=== PATIENT | female | born 1960 | race Caucasian/White ===

== ENCOUNTER 2016-07-16 16:13 | Emergency (ER) | payer SELFPAY ==
[~2016-07-16] VITALS: Ht 160 cm; Wt 52.2 kg
[2016-07-16 16:20] VITALS: BP 146/65
--- NOTE | 2016-07-16 16:34 | PHYS DOC ---
Past Medical History Past Medical History: Arthritis, Other Additional Past Medical Histor: CARPAL TUNNEL, GRANULOMA ANNULARE (SKIN DISORDER) Past Surgical History: Tonsillectomy, Tubal ligation Additional Past Surgical Histo: BILATERAL CARPAL TUNNEL SX Alcohol Use: None Drug Use: None Adult General Chief Complaint Chief Complaint: [facility] HPI Patient is a 55 year old 55-year-old female patient with no significant medical history who presents with sharp 6 out of 7 right shoulder pain that began 3-7 days ago. Patient denies any injury. Patient states the pain is worse when she tries to raise her right upper extremity above her head. Patient denies any chest pain or shortness of breath. PCP Dr. Isadora Prather Review of Systems Review of Systems Constitutional: Denies fever or chills [] Eyes: Denies change in visual acuity, redness, or eye pain [] HENT: Denies nasal congestion or sore throat [] Respiratory: Denies cough or shortness of breath [] Cardiovascular: No additional information not addressed in HPI [] GI: Denies abdominal pain, nausea, vomiting, bloody stools or diarrhea [] : Denies dysuria or hematuria [] Musculoskeletal: Right shoulder pain Integument: Denies rash or skin lesions [] Neurologic: Denies headache, focal weakness or sensory changes [] Endocrine: Denies polyuria or polydipsia [] Allergies Allergies Allergies Coded Allergies Type Severity Reaction Last Updated Verified No Known Drug Allergies 07/16/16 No Physical Exam Physical Exam Constitutional: Well developed, well nourished, no acute distress, non-toxic appearance. [] HENT: Normocephalic, atraumatic, bilateral external ears normal, oropharynx moist, no oral exudates, nose normal. [] Eyes: PERRLA, EOMI, conjunctiva normal, no discharge. [] Neck: Normal range of motion, no tenderness, supple, no stridor. [] Cardiovascular:Heart rate regular rhythm, no murmur [] Lungs & Thorax: Bilateral breath sounds clear to auscultation [] Abdomen: Bowel sounds normal, soft, no tenderness, no masses, no pulsatile masses. [] Skin: Warm, dry, no erythema, no rash. [] Back: No tenderness, no CVA tenderness. [] Extremities: Right shoulder with no obvious deformity. Tenderness on the right scapula on exam. Limited range of motion to the right shoulder especially abduction above 75 degrees due to pain. Adequate plantar flexion and dorsiflexion on the right forearm. Adequate radial, ulnar and medial sensation to the right forearm. +2 right radial pulses. Cap refill <2 seconds to the right upper extremity. Neurologic: Alert and oriented X 3, normal motor function, normal sensory function, no focal deficits noted. [] Psychologic: Affect normal, judgement normal, mood normal. [] Current Patient Data Vital Signs Vital Signs Date Time Temp Pulse Resp B/P (MAP) Pulse Ox O2 Delivery O2 Flow Rate FiO2 07/16/16 16:20 98.2 55 18 100 Room Air 98.2 EKG EKG [] Radiology/Procedures Radiology/Procedures [] Course & Med Decision Making Course & Med Decision Making Pertinent Labs and Imaging studies reviewed. (See chart for details) Patient is in the ED with complaints of right shoulder pain no known injury. Pain worse on range of motion. Right shoulder x-rays interpreted by radiologist are negative for any acute findings.17:04 EKG was done to rule out possibility of cardiac origin, EKG interpreted by Dr. May sinus rhythm, heart rate 51, QRS interval 76, no STEMI. Pain suspicious of tendinitis. Discharged with diclofenac, Medrol Dosepak, cyclobenzaprine. F/u with Orthopedic doctor Xavier Disclaimer Xavier Disclaimer This electronic medical record was generated, in whole or in part, using a voice recognition dictation system. Departure Departure Impression: Primary Impression: Right shoulder tendinitis Disposition: 01 HOME, SELF-CARE Condition: STABLE Referrals: ISADORA GRAHAM MD (PCP) FLORENCIO ROLLINS II, MD Follow-up in one week Patient Instructions: Biceps Tendon Tendinitis (Distal) with [facility] Additional Instructions: You were seen for right shoulder pain suspicious of tendinitis. Your right shoulder x-ray is negative for any acute findings. We highly recommend you follow-up with orthopedic doctor or your own primary care doctor in one week. Come back to the ED symptoms worsen especially if you have any chest pain or shortness of breath. Scripts Cyclobenzaprine Hcl (CYCLOBENZAPRINE HCL) 10 Mg Tablet 1 TAB PO TID, #30 TAB Prov: ADIACHACE APRN 07/16/16 Diclofenac Potassium (DICLOFENAC POTASSIUM) 50 Mg Tablet 1 TAB PO BID, #60 TAB Prov: CHACE RUSHING APRN 07/16/16 Methylprednisolone (MEDROL) 4 Mg Tab.ds.pk 1 PKG PO UD, #1 PKG Prov: CHACE RUSHING APRN 07/16/16 CHACE RUSHING APRN July 16, 2016 16:34
--- NOTE | 2016-07-16 16:52 | RAD ---
Right shoulder, 3 views, 07/16/2016: History: Shoulder pain No fracture or dislocation is identified. There is only minimal sclerotic and cystic change at rotator cuff insertion sites on the greater tuberosity. The periarticular soft tissues are unremarkable. IMPRESSION: No acute right shoulder abnormality is detected.
--- NOTE | 2016-07-16 17:09 | EKG ---
[facility] [address] [place] [address] Test Date: 2016-07-16 Test Time: 17:04:22 Pat Name: EDDIE LOPEZ Department: Room: Gender: F Dump Truck Operator: : 1960 Requested By: CHACE RUSHING Order Number: [id number] Reading MD: Measurements Intervals [place] Rate: 51 P: 41 WV: 158 QRS: 36 QRSD: 76 T: 26 QT: 466 QTc: 431 Interpretive Statements SINUS RHYTHM RI6.01 Unconfirmed report No previous ECG available for comparison
[2016-07-16] MEDS ORDERED: CYCL10TA2 PO (17:40)
[2016-07-16] MEDS ORDERED: METH4TAB2 PO (17:40)
[2016-07-16] MEDS ORDERED: DICL50TA2 PO (17:40)
== END 2016-07-16 17:44 | disposition home or self-care (01) ==
LOC: ER 17:40
DX: M75.91 Shoulder lesion, unspecified, right shoulder (principal); G56.03 Carpal tunnel syndrome, bilateral upper limbs; M19.90 Unspecified osteoarthritis, unspecified site
CPT/HCPCS: 73030; 93005; 99284-25

== ENCOUNTER 2016-07-29 12:30 | Emergency (ER) | payer SELFPAY ==
[~2016-07-29] VITALS: Ht 160 cm; Wt 52.6 kg
[~2016-07-29 12:30] MED LIST: CYCL10TA2 PO; DICL50TA2 PO; METH4TAB2 PO
[2016-07-29 12:41] VITALS: BP 129/61
--- NOTE | 2016-07-29 12:49 | PHYS DOC ---
Past Medical History Past Medical History: Arthritis, Other Additional Past Medical Histor: CARPAL TUNNEL, GRANULOMA ANNULARE (SKIN DISORDER) Past Surgical History: Tonsillectomy, Tubal ligation Additional Past Surgical Histo: BILATERAL CARPAL TUNNEL SX Alcohol Use: None Drug Use: None Adult General Chief Complaint Chief Complaint: HAND PROBLEM HPI HPI Patient is a 55 year old female who presents today with mild pain between her right ring finger and pinky finger webspace that began 2 weeks ago. Patient denies any known injury. She states the pain is worse on flexion and extension of the pinky finger and ring finger. Review of Systems Review of Systems Constitutional: Denies fever or chills [] Eyes: Denies change in visual acuity, redness, or eye pain [] Musculoskeletal:pain to right ring finger and pinky finger webspace Integument: Denies rash or skin lesions [] Neurologic: Denies headache, focal weakness or sensory changes [] Endocrine: Denies polyuria or polydipsia [] Allergies Allergies Allergies Coded Allergies Type Severity Reaction Last Updated Verified No Known Drug Allergies 07/16/16 No Physical Exam Physical Exam Constitutional: Well developed, well nourished, no acute distress, non-toxic appearance. [] Skin: Warm, dry, no erythema, no rash. [] Back: No tenderness, no CVA tenderness. [] Extremities: Right hand with no obvious deformity. No ecchymosis on the right hand. Tenderness on palpation of the webspace between the right ring finger and pinky finger. Full range of motion to the right hand and fingers including flexion and extension. Adequate radial medial and ulnar sensation to the right hand. +2 right radial pulse. Cap refill and symptoms of concern right upper extremity. Neurologic: Alert and oriented X 3, normal motor function, normal sensory function, no focal deficits noted. [] Psychologic: Affect normal, judgement normal, mood normal. [] Current Patient Data Vital Signs Vital Signs Date Time Temp Pulse Resp B/P (MAP) Pulse Ox O2 Delivery O2 Flow Rate FiO2 07/29/16 12:41 97.9 51 17 100 Room Air 97.9 EKG EKG [] Radiology/Procedures Radiology/Procedures []PROCEDURE: HAND RIGHT 3V Right hand radiographs History: Pain between the fourth and fifth finger web space. Comparison: None. Findings: PA, lateral, and oblique views of the right hand. No acute fracture or dislocation is identified. No radiopaque foreign body or focal soft tissue swelling is seen. Impression: No acute osseous abnormality identified. DICTATED and SIGNED BY: MANJIT PENA MD DATE: 07/29/16 1305 CC: ISADORA GRAHAM MD; CHACE RUSHING APRN; NON,STAFF ~ Course & Med Decision Making Course & Med Decision Making Pertinent Labs and Imaging studies reviewed. (See chart for details) Patient is in the ED with complaints of pain between the webspace of the right ring finger and pinky finger. No known injury. Right hand x-rays interpreted by radiologist are negative for any acute findings. Patient's pain is very superficial. Discharged with instructions to take Tylenol Motrin for pain. Ice elevation encouraged. Follow-up with Dr. Recio through Latha's office in one week Dragon Disclaimer Dragon Disclaimer This electronic medical record was generated, in whole or in part, using a voice recognition dictation system. Departure Departure Impression: Primary Impression: Right hand pain Disposition: 01 HOME, SELF-CARE Condition: STABLE Referrals: ISADORA GRAHAM MD (PCP) BERNABE AZUL MD Follow up with Dr. Recio at Dr. Azul's office in one to two weeks Patient Instructions: Musculoskeletal Pain Additional Instructions: You were seen for right hand pain, your x-ray of the right hand is negative for any acute findings. You can ice and elevate the hand. Follow-up with orthopedic doctor in one to 2 weeks. Take Tylenol/ Motrin for pain. CHACE RUSHING APRN Jul 29, 2016 12:49
--- NOTE | 2016-07-29 13:14 | RAD ---
Right hand radiographs History: Pain between the fourth and fifth finger web space. Comparison: None. Findings: PA, lateral, and oblique views of the right hand. No acute fracture or dislocation is identified. No radiopaque foreign body or focal soft tissue swelling is seen. Impression: No acute osseous abnormality identified.
== END 2016-07-29 13:30 | disposition home or self-care (01) ==
LOC: ER 12:30
DX: M79.641 Pain in right hand (principal); M79.644 Pain in right finger(s); G56.03 Carpal tunnel syndrome, bilateral upper limbs; M19.90 Unspecified osteoarthritis, unspecified site
CPT/HCPCS: 73130; 99284

== ENCOUNTER → 2017-02-01 | Outpatient (CLI) | payer OTHER ==
--- NOTE | 2017-02-01 11:03 | RAD ---
DATE: 02/01/2017 EXAM: DIGITAL SCREEN BILAT W/CAD HISTORY: Routine screening. COMPARISON: 01/03/2015 and 02/27/2014. This study was interpreted with the benefit of Computerized Aided Detection (CAD). FINDINGS: The parenchymal pattern is stable. A nodular density in the outer right breast appears stable. No new mass or malignant appearing microcalcifications are seen. There are benign calcifications bilaterally. The axillae are unremarkable. Breast Density: SCATTERED The breast parenchyma shows scattered fibroglandular densities. Breast parenchyma level B. IMPRESSION: No mammographic features suspicious for malignancy are identified. BI-RADS CATEGORY: 2 BENIGN FINDING(S) RECOMMENDED FOLLOW-UP: 12M 12 MONTH FOLLOW-UP PQRS compliance statement: Patient information was entered into a reminder system with a target due date 02/01/2018 for the next mammogram. Mammography is a sensitive method for finding small breast cancers, but it does not detect them all and is not a substitute for careful clinical examination. A negative mammogram does not negate a clinically suspicious finding and should not result in delay in biopsying a clinically suspicious abnormality. "Our facility is accredited by the [employer] Mammography Program."
== END | disposition home or self-care (01) ==
LOC: MAMMO 10:20
PROVIDERS: ATTEND Family Medicine
DX: Z12.31 Encounter for screening mammogram for malignant neoplasm of breast (principal)
CPT/HCPCS: G0202; 77067

== ENCOUNTER 2018-08-17 21:27 | Emergency (ER) | payer SELFPAY ==
[~2018-08-17] VITALS: Ht 160 cm; Wt 53.1 kg
[2018-08-17 21:53] VITALS: BP 143/111
[2018-08-17] MEDS ORDERED: ONDA4TAB12 PO (22:50)
--- NOTE | 2018-08-17 22:50 | PHYS DOC ---
Past Medical History Past Medical History: Arthritis, Other Additional Past Medical Histor: CARPAL TUNNEL, GRANULOMA ANNULARE (SKIN DISORDER) Past Surgical History: Tonsillectomy, Tubal ligation Additional Past Surgical Histo: BILATERAL CARPAL TUNNEL SX Alcohol Use: None Drug Use: None Adult General Chief Complaint Chief Complaint: DRUG ABUSE HPI HPI Patient is a 57 year old female who presents after running out of methadone. The patient states she hasn't had it in several days and is been feeling nauseous. Has a prescription ready for at the pharmacy in the morning. Rates her pain as 8 out of 10 and sharp. Review of Systems Review of Systems Constitutional: Denies fever or chills [] Eyes: Denies change in visual acuity, redness, or eye pain [] HENT: Denies nasal congestion or sore throat [] Respiratory: Denies cough or shortness of breath [] Cardiovascular: No additional information not addressed in HPI [] GI: Denies abdominal pain, bloody stools or diarrhea Reports Nausea and vomiting. : Denies dysuria or hematuria [] Musculoskeletal: Denies back pain or joint pain [] Integument: Denies rash or skin lesions [] Neurologic: Denies headache, focal weakness or sensory changes [] Endocrine: Denies polyuria or polydipsia [] Complete systems were reviewed and found to be within normal limits, except as documented in this note. Allergies Allergies Allergies Coded Allergies Type Severity Reaction Last Updated Verified No Known Drug Allergies 07/16/16 No Physical Exam Physical Exam Constitutional: Well developed, well nourished, no acute distress, non-toxic appearance. [] HENT: Normocephalic, atraumatic, bilateral external ears normal, oropharynx moist, no oral exudates, nose normal. [] Eyes: PERRLA, EOMI, conjunctiva normal, no discharge. [] Neck: Normal range of motion, no tenderness, supple, no stridor. [] Cardiovascular:Heart rate regular rhythm, no murmur [] Lungs & Thorax: Bilateral breath sounds clear to auscultation [] Abdomen: Bowel sounds normal, soft, no tenderness, no masses, no pulsatile masses. [] Skin: Warm, dry, no erythema, no rash. [] Back: No tenderness, no CVA tenderness. [] Extremities: No tenderness, no cyanosis, no clubbing, ROM intact, no edema. [] Neurologic: Alert and oriented X 3, normal motor function, normal sensory function, no focal deficits noted. [] Psychologic: Affect normal, judgement normal, mood normal. [] EKG EKG [] Radiology/Procedures Radiology/Procedures [] Course & Med Decision Making Course & Med Decision Making Pertinent Labs and Imaging studies reviewed. (See chart for details) Will give Zofran in ER and send home with Script. Dragon Disclaimer Dragon Disclaimer This electronic medical record was generated, in whole or in part, using a voice recognition dictation system. Departure Departure Impression: Primary Impression: Chronic pain Disposition: HOME, SELF-CARE Condition: STABLE Referrals: ISADORA GRAHAM MD (PCP) Additional Instructions: Thank you for visiting [facility]. We appreciate you trusting us with your care. If any additional problems come up don't hesitate to return to visit us. Please follow up with your primary care provider so they can plan additional care if needed and know about the problem that you had. If symptoms worsen come back to the Emergency Department. Any concerning symptoms that start such as chest pain, shortness of Air, weakness or numbness on one side of the body, running high fevers or any other concerning symptoms return to the ER. Scripts Ondansetron (ONDANSETRON ODT) 4 Mg Tab.rapdis 1 TAB PO PRN Q6-8HRS PRN for NAUSEA, #16 TAB Prov: MANJIT CASEY APRN 08/17/18 Problem Qualifiers Primary Impression: Chronic pain Chronic pain type: other chronic pain Qualified Codes: G89.29 - Other chronic pain MANJIT CASEY APRN Aug 17, 2018 22:50
[2018-08-17] MEDS ORDERED: ONDANSETRON ODT 4 MG TAB.RAPDIS. PO ONE (23:15)
== END 2018-08-17 23:13 | disposition home or self-care (01) ==
LOC: ER 21:27
DX: G89.29 Other chronic pain (principal); R11.2 Nausea with vomiting, unspecified; Z90.89 Acquired absence of other organs; Z98.51 Tubal ligation status; M19.90 Unspecified osteoarthritis, unspecified site
CPT/HCPCS: 99283; Q0162

== ENCOUNTER → 2019-12-13 | Outpatient (CLI) | payer OTHER ==
[~2019-12-13] MED LIST changes: +ONDA4TAB12 PO
--- NOTE | 2019-12-13 15:29 | RAD ---
Examination: 1. Bilateral digital diagnostic mammogram. 2. Limited bilateral breast ultrasound. INDICATION: 58-year-old woman due for bilateral mammographic screening referred for imaging evaluation of the areas of palpable concern in the upper outer right breast and in the lower inner left breast. COMPARISON: Bilateral mammogram of 02/01/2017 TECHNIQUE: CC and MLO views of both breasts were obtained with 2-D technique and reviewed with computer-aided detection. The areas of palpable concern were marked at the skin surface with triangular markers. Thereafter, targeted ultrasound of the bilateral breasts in the areas of palpable concern was performed. FINDINGS: Breast parenchyma is almost entirely fatty replaced. There is no mammographic correlate to the area of palpable concern in the upper-outer right breast, which is marked with a triangular marker. Likewise, there is no mammographic correlate to the area of palpable concern in the lower inner left breast as marked with a triangular marker. There has been no significant mammographic interval change and no suspicious findings are evident on mammogram. Targeted ultrasound of the bilateral breasts in the areas of palpable concern revealed no sonographic correlate to the area of palpable concern. No suspicious sonographic findings were seen either. Elementary Science Teacher images were acquired at the right 10:00 position 10.5 cm from the nipple and at the left 7:00 position 9 cm from the nipple. IMPRESSION: Negative bilateral mammogram and targeted breast ultrasound bilaterally. No mammographic or sonographic correlates to the areas of palpable concern Recommend clinical management which may include biopsy if there are any clinically suspicious findings. In the absence of a clinically suspicious finding, routine screening next due in one year is recommended. BI-RADS Category 1 Negative Patient entered into a reminder system with targeted due date for next mammogram. Electronically signed by: Vernon Ledezma MD (12/13/2019 3:26 PM) [id number]
== END ==
LOC: MAMMO 11:55
PROVIDERS: ATTEND Family Medicine
DX: R92.2 Inconclusive mammogram (principal); N64.59 Other signs and symptoms in breast
CPT/HCPCS: 77066; 76641-50

== ENCOUNTER 2020-01-28 11:27 | Emergency (ER) | payer SELFPAY ==
[~2020-01-28] VITALS: Ht 162.6 cm; Wt 55.0 kg
[2020-01-28 11:43] VITALS: BP 169/74
[2020-01-28] MEDS ORDERED: HYDR25TA PO (11:52)
[2020-01-28] MEDS ORDERED: TRIA80OI TP (11:52)
[2020-01-28] MEDS ORDERED: FAMO20TA5 PO (11:52)
[2020-01-28] MEDS ORDERED: PRED-220 PO (11:52)
--- NOTE | 2020-01-28 11:52 | PHYS DOC ---
Past Medical History Past Medical History: Arthritis, Other Additional Past Medical Histor: CARPAL TUNNEL, GRANULOMA ANNULARE (SKIN DISORDER) Past Surgical History: Tonsillectomy, Tubal ligation Additional Past Surgical Histo: BILATERAL CARPAL TUNNEL SX Smoking Status: Former Smoker Alcohol Use: None Drug Use: None General Adult EDM: Chief Complaint: SKIN RASH/ABSCESS HPI: HPI: Patient is a 59 year old female who presents to the ED today with a pruritic rash that began 1-1/2 weeks ago. Patient denies any new contacts or any new foods though she reports staying with the boyfriend which is new. She states the boyfriend has a dog and she has always petted the dog with no issues. She states nobody in that house has any rash. She states she has tried Benadryl and calamine lotion with minimal relief. Review of Systems: Review of Systems: Constitutional: Denies fever or chills. [] Musculoskeletal: Denies back pain or joint pain. [] Integument: Reports rash Neurologic: Denies headache, focal weakness or sensory changes. [] Psychiatric: Denies depression or anxiety. [] Heart Score: Risk Factors: Risk Factors: DM, Current or recent (<one month) smoker, HTN, HLP, family history of CAD, obesity. Risk Scores: Score 0 - 3: 2.5% MACE over next 6 weeks - Discharge Home Score 4 - 6: 20.3% MACE over next 6 weeks - Admit for Clinical Observation Score 7 - 10: 72.7% MACE over next 6 weeks - Early Invasive Strategies Allergies: Allergies: Allergies Coded Allergies Type Severity Reaction Last Updated Verified No Known Drug Allergies 07/16/16 No Physical Exam: PE: Constitutional: Well developed, well nourished, no acute distress, non-toxic appearance. [] Skin: Warm, dry, small amount of erythematous papular rash on bilateral upper extremities, chest, back including neck and left lower extremity. Back: No tenderness, no CVA tenderness. [] Extremities: No tenderness, no cyanosis, no clubbing, ROM intact, no edema. [] Neurologic: Alert and oriented X 3, normal motor function, normal sensory function, no focal deficits noted. [] Psychologic: Affect normal, judgement normal, mood normal. [] EKG: EKG: [] Radiology/Procedures: Radiology/Procedures: [] Course & Med Decision Making: Course & Med Decision Making Pertinent Labs and Imaging studies reviewed. (See chart for details) This is a 59-year-old female patient presenting to the ED today with contact dermatitis rash unknown cause, rash is widespread throughout the body. Discharged on prednisone, hydroxyzine, Benadryl recommended and Pepcid, follow- up with business functional analyst 2 weeks Xavier Disclaimer: Xavier Disclaimer: This electronic medical record was generated, in whole or in part, using a voice recognition dictation system. Departure Departure Impression: Primary Impression: Contact dermatitis Qualified Codes: L25.9 - Unspecified contact dermatitis, unspecified cause Disposition: 01 DC HOME SELF CARE/HOMELESS Condition: STABLE Referrals: ISADORA GRAHAM MD (PCP) JASON FRANKLIN MD follow up in 2 weeks Patient Instructions: Contact Dermatitis, [id number] Additional Instructions: You were evaluated in the emergency room for a rash. Use the prescribed medications as ordered. Follow-up with the provided business functional analyst in 2 weeks. Maintain good hygiene at home. Scripts Triamcinolone Acetonide (TRIAMCINOLONE ACETONIDE) 80 Gm Oint...g. 1 FARZANA TP BID, #30 GM 1 Refill Prov: CHACE RUSHING APRN 01/28/20 Famotidine (FAMOTIDINE) 20 Mg Tablet 20 MG PO DAILY, #7 TAB Prov: CHACE RUSHING APRN 01/28/20 Prednisone (PREDNISONE ) 10 Mg Tablet 10 MG PO UD for PREDNISONE TAPER, #39 TAB 0 Refills Take 3 tablets by mouth twice a day for 3 days, then take 2 tablets by mouth twice a day for 3 days, then take 1 tablet by mouth twice a day for 3 days, then take 1 tablet by mouth daily x 3 days, then stop. Prov: CHACE RUSHING APRN 01/28/20 Hydroxyzine Hcl (HYDROXYZINE HCL) 25 Mg Tablet 1 TAB PO TID, #90 TAB 2 Refills Prov: CHACE RUSHING APRN 01/28/20 CHACE RUSHING APRN Jan 28, 2020 11:52
== END 2020-01-28 11:57 | disposition home or self-care (01) ==
LOC: ER 11:27
DX: L25.9 Unspecified contact dermatitis, unspecified cause (principal); Z87.891 Personal history of nicotine dependence
CPT/HCPCS: 99283

== ENCOUNTER 2020-02-20 15:26 | Emergency (ER) | payer SELFPAY ==
[~2020-02-20] VITALS: Ht 160 cm; Wt 53.1 kg
[~2020-02-20 15:26] MED LIST changes: +FAMO20TA5 PO; +HYDR25TA PO; +PRED-220 PO; +TRIA80OI TP
[2020-02-20 17:06] LABS: BILIRUBIN,URINE NEGATIVE (NEG); CLARITY,URINE CLEAR; COLOR,URINE YELLOW; NITRITE,URINE NEGATIVE (NEG); PROTEIN,URINE NEGATIVE (NEG-TRACE)
[2020-02-20 17:13] LABS: BACTERIA,URINE 0 /HPF (0-FEW)
--- NOTE | 2020-02-20 17:40 | ED.ADGEN ---
Past Medical History Past Medical History: Arthritis, Other Additional Past Medical Histor: CARPAL TUNNEL, GRANULOMA ANNULARE (SKIN DISORDER) Past Surgical History: Tonsillectomy, Tubal ligation Additional Past Surgical Histo: BILATERAL CARPAL TUNNEL SX Smoking Status: Former Smoker Alcohol Use: None Drug Use: None General Adult EDM: Chief Complaint: PAIN ON URINATION HPI: HPI: Patient is a 59 year old female who presents the emergency department with complaints of continued pain with urination and lower abdominal pain after being given an IM shot of an antibiotic 2 days ago at her primary care doctor's office for a urinary tract infection. The patient denies any fever, back pain, nausea, vomiting, diarrhea, cough, shortness of breath, body aches, or fatigue. She d enies any irregular vaginal discharge, bleeding, or odor. She reports that the pain in her abdomen increased after she had intercourse. Patient states that until she arrived there was no blood in her urine. She reports there is blood on the toilet paper after she went to the bathroom when she gave a urine specimen in the ER. She currently rates her pain a 2 out of 10 on the pain scale, the pain is worse with voiding, she denies any alleviating factors. Review of Systems: Review of Systems: Complete ROS is negative unless otherwise noted in HPI. Allergies: Allergies: Allergies Coded Allergies Type Severity Reaction Last Updated Verified No Known Drug Allergies 07/16/16 No Physical Exam: PE: See Above Constitutional: Well developed, well nourished, no acute distress, non-toxic appearance. [] HENT: Normocephalic, atraumatic, bilateral external ears normal, nose normal. [] Eyes: PERRLA, EOMI, conjunctiva normal, no discharge. [] Neck: Normal range of motion, no stridor. [] Cardiovascular:Heart rate regular rhythm Lungs & Thorax: Respirations even and unlabored, no retractions, no respiratory distress Abdomen: suprapubic tenderness to palpation, no rebound tenderness, no guarding, abdomen is otherwise soft and nontender Back: No CVA tenderness Skin: Warm, dry, no erythema, no rash. [] Extremities: No cyanosis, ROM intact, no edema. [] Neurologic: Alert and oriented X 3, no focal deficits noted. [] Psychologic: Affect normal, judgement normal, mood normal. [] Current Patient Data: Labs: Laboratory Tests Test 02/20/20 16:54 Urine Collection Type Unknown Urine Color Yellow Urine Clarity Clear Urine pH 6.0 (<5.0-8.0) Urine Specific [place] 1.010 (1.000-1.030) Urine Protein Negative mg/dL (NEG-TRACE) Urine Glucose (UA) Negative mg/dL (NEG) Urine Ketones (Stick) Negative mg/dL (NEG) Urine Blood Negative (NEG) Urine Nitrite Negative (NEG) Urine Bilirubin Negative (NEG) Urine Urobilinogen Dipstick 1.0 mg/dL (0.2 mg/dL) Urine Leukocyte Esterase Trace (NEG) Urine RBC 3-5 /HPF (0-2) Urine WBC 1-4 /HPF (0-4) Urine Squamous Epithelial Cells Mod /LPF Urine Bacteria 0 /HPF (0-FEW) Vital Signs: Vital Signs Date Time Temp Pulse Resp B/P (MAP) Pulse Ox O2 Delivery O2 Flow Rate FiO2 02/20/20 16:22 97.9 64 16 138/75 (96) 99 97.9 EKG: EKG: [] Heart Score: Risk Factors: Risk Factors: DM, Current or recent (<one month) smoker, HTN, HLP, family history of CAD, obesity. Risk Scores: Score 0 - 3: 2.5% MACE over next 6 weeks - Discharge Home Score 4 - 6: 20.3% MACE over next 6 weeks - Admit for Clinical Observation Score 7 - 10: 72.7% MACE over next 6 weeks - Early Invasive Strategies Radiology/Procedures: Radiology/Procedures: PROCEDURE: CT ABDOMEN PELVIS WO CONTRAST Exam: CT of abdomen and pelvis without contrast INDICATION: Flank pain, hematuria TECHNIQUE: Sequential axial images through the abdomen and pelvis obtained without IV contrast. Sagittal and coronal reformatted images were reconstructed from the axial data and reviewed. Comparisons: None FINDINGS: Heart size is normal. No pericardial effusion. Visualized lung bases are clear. No pleural effusion. Liver, spleen, pancreas and adrenals are unremarkable. Gallstones are noted within the gallbladder. No perinephric inflammation or hydronephrosis. No renal or ureteral calculi are identified. Bladder is distended and partially and not well evaluated. Uterus is not enlarged. There is a cystic lesion at the left adnexa which measures up to 3.9 cm. Few scattered diverticula noted in the sigmoid colon without evidence of acute diverticulitis. Appendix is normal. No free intra-abdominal air or fluid. No obstruction. Abdominal aorta has a normal course and caliber. No enlarged intra-abdominal lymph nodes are identified. No suspicious osseous lesions or acute fractures. IMPRESSION: 1. No renal or ureteral calculi. No evidence for obstructive uropathy. 2. Cystic lesion at the left adnexa measuring 3.9 cm. 3. Cholelithiasis. [] Course & Med Decision Making: Course & Med Decision Making Pertinent Labs and Imaging studies reviewed. (See chart for details) 59-year-old female presents emergency department with concerns of continued urinary tract infection. UA revealed 1-4 white blood cells, no bacteria there were 3-5 red blood cells. Prescription written for Pyridium, patient encouraged to increase fluids to at least 80 ounces of water a day. Follow-up with her primary care doctor, and leo id bladder irritants. Return to the ER if symptoms worsen or fever develops. Patient verbalized an understanding of home care, medications, follow-up, and return to ED instructions and was in agreement with the plan of care. [] Dragon Disclaimer: Dragon Disclaimer: This electronic medical record was generated, in whole or in part, using a voice recognition dictation system. Departure Departure Impression: Primary Impression: Dysuria Disposition: 01 DC HOME SELF CARE/HOMELESS Condition: STABLE Referrals: ISADORA GRAHAM MD (PCP) Patient Instructions: Dysuria-Brief Additional Instructions: Fill prescription(s) and use as directed. Avoid bladder irritants such as caffeine, carbonation, and spicy foods. Increase clear fluids. Follow up with your primary care doctor if symptoms persist, return to the ER if symptoms worsen. Scripts Phenazopyridine Hcl (PYRIDIUM) 200 Mg Tablet 1 TAB PO TID for urinary discomfort for 3 Days, #9 TAB 0 Refills Prov: GERRI PHILIP [employer]UTTLECOCK FEATHER TRIMMER 02/20/20 GERRI PHILIP [employer] FEATHER TRIMMER Feb 20, 2020 17:40
--- NOTE | 2020-02-20 18:34 | RAD ---
Exam: CT of abdomen and pelvis without contrast INDICATION: Flank pain, hematuria TECHNIQUE: Sequential axial images through the abdomen and pelvis obtained without IV contrast. Sagit christy and coronal reformatted images were reconstructed from the axial data and reviewed. Comparisons: None FINDINGS: Heart size is normal. No pericardial effusion. Visualized lung bases are clear. No pleural effusion. Liver, spleen, pancreas and adrenals are unremarkable. Gallstones are noted within the gallbladder. No perinephric inflammation or hydronephrosis. No renal or ureteral calculi are identified. Bladder is distended and partially and not well evaluated. Uterus is not enlarged. There is a cystic lesion at the left adnexa which measures up to 3.9 cm. Few scattered diverticula noted in the sigmoid colon without evidence of acute diverticulitis. Append ix is normal. No free intra-abdominal air or fluid. No obstruction. Abdominal aorta has a normal course and caliber. No enlarged intra-abdominal lymph nodes are identified. No suspicious osseous lesions or acute fractures. IMPRESSION: 1. No renal or ureteral calculi. No evidence for obstructive uropathy. 2. Cystic lesion at the left adnexa measuring 3.9 cm. 3. Cholelithiasis. Exposure: One or more of the following in the visualized dose reduction techniques were utilized for this examination: 1. Automated exposure control 2. Adjustment of the MA and/or KV according to patient size 3. Use of iterative of reconstructive technique Electronically signed by: Jesus Alberto Melgar MD (02/20/2020 6:32 PM) [facility]
[2020-02-20] MEDS ORDERED: PHEN-318 PO (18:39)
[2020-02-20 18:50] VITALS: BP 131/69
== END 2020-02-20 18:55 | disposition home or self-care (01) ==
LOC: ER 15:26
DX: R30.9 Painful micturition, unspecified (principal); R10.30 Lower abdominal pain, unspecified; M19.90 Unspecified osteoarthritis, unspecified site; Z90.89 Acquired absence of other organs; Z98.51 Tubal ligation status; Z98.890 Other specified postprocedural states; Z87.891 Personal history of nicotine dependence
CPT/HCPCS: 74176; 81001; 87086; 99285

== ENCOUNTER 2021-07-13 09:12 | Emergency (ER) | payer SELFPAY ==
[~2021-07-13] VITALS: Ht 160 cm; Wt 46.0 kg
[~2021-07-13 09:12] MED LIST changes: +CYCL10TA19 PO; -CYCL10TA2 PO; +PHEN-318 PO
[2021-07-13 10:39] VITALS: BP 140/61
--- NOTE | 2021-07-13 12:15 | PHYS DOC ---
Past Medical History Past Medical History: Arthritis, Other Additional Past Medical Histor: CARPAL TUNNEL, GRANULOMA ANNULARE (SKIN DISORDER) Past Surgical History: Tonsillectomy, Tubal ligation Additional Past Surgical Histo: BILATERAL CARPAL TUNNEL SX Smoking Status: Former Smoker Alcohol Use: None Drug Use: None General Adult EDM: Chief Complaint: MECHANICAL FALL HPI: HPI: Patient is a 60 year old female who presents with states today she was going down some stairs when she slipped and fell down 6 stairs. She stated that she landed on the right elbow and then landed on her mid lower back. She has abrasion to her mid lower back. She denies hitting her head, neck pain, abdominal pain, chest pain, shortness of breath, dizziness, headache, vision change, numbness and tingling, focal weakness. History former smoker, arthritis, carpal tunnel, granuloma annularis. Patient is mainly complaining of her left elbow of which she rates at a 5 out of 10. Review of Systems: Review of Systems: Constitutional: Denies fever or chills. [] Eyes: Denies change in visual acuity. [] HENT: Denies nasal congestion or sore throat. [] Respiratory: Denies cough or shortness of breath. [] Cardiovascular: Denies chest pain or edema. [] GI: Denies abdominal pain, nausea, vomiting, bloody stools or diarrhea. [] : Denies dysuria. [] Musculoskeletal: + Mid lower back pain. + left elbow joint pain. [] Integument: Denies rash. + Lower back superficial abrasion [] Neurologic: Denies headache, focal weakness or sensory changes. [] Endocrine: Denies polyuria or polydipsia. [] Lymphatic: Denies swollen glands. [] Psychiatric: Denies depression or anxiety. [] Heart Score: C/O Chest Pain: No Allergies: Allergies: Allergies Coded Allergies Type Severity Reaction Last Updated Verified No Known Drug Allergies 07/16/16 No Physical Exam: PE: Constitutional: Well developed, well nourished, no acute distress, non-toxic appearance. [] HENT: Normocephalic, atraumatic, bilateral external ears normal, oropharynx moist, no oral exudates, nose normal. [] Eyes: PERRLA, EOMI, conjunctiva normal, no discharge. [] Neck: Normal range of motion, no tenderness, supple, no stridor. [] Cardiovascular:Heart rate regular rhythm, no murmur [] Lungs & Thorax: Bilateral breath sounds clear to auscultation [] Abdomen: Bowel sounds normal, soft, no tenderness, no masses, no pulsatile masses. [] Skin: Warm, dry, no erythema, no rash. Mid lower back very superficial abrasion. [] Back: Lumbar focal bony tenderness, no CVA tenderness. [] Extremities: Left lateral elbow tenderness, no cyanosis, no clubbing, ROM intact, no edema. [] Neurologic: Alert and oriented X 3, normal motor function, normal sensory function, no focal deficits noted. [] Psychologic: Affect normal, judgement normal, mood normal. [] Current Patient Data: Vital Signs: Vital Signs Date Time Temp Pulse Resp B/P (MAP) Pulse Ox O2 Delivery O2 Flow Rate FiO2 07/13/21 10:39 98.4 56 20 140/61 (87) 100 Room Air 98.4 EKG: EKG: [] Radiology/Procedures: Radiology/Procedures: [] Course & Med Decision Making: Course & Med Decision Making Pertinent Labs and Imaging studies reviewed. (See chart for details) [] See HPI. Alert and oriented x4. Ambulatory steady gait. Skin pink warm and dry. Radial pulse strong and present. Full range of motion of all joints. No joint swelling, redness, deformity, bruising, lacerations. No loss of bowel or bladder. No saddle anesthesia. States at times she has a sharp shooting pain into the left hand from the elbow with some tingling. Cap refill less than 2 seconds. Vital signs are within normal limits. Speaks in full clear sentences. PERRLA. No trauma to the head or the face. Lumbar focal bony spinal tenderness over the abrasion area. There is no bruising. No CVA tenderness. Our radiology is having trouble uploading CT and x-ray reads. I got a printed off hardcopy of the CT lumbar that shows arthritis and a left ovarian cyst. Left elbow is read by Dr Trinidad as no Obvious acute findings. Xavier Disclaimer: Xavier Disclaimer: This electronic medical record was generated, in whole or in part, using a voice recognition dictation system. Departure Departure Impression: Primary Impression: Fall Qualified Codes: W19.XXXA - Unspecified fall, initial encounter Additional Impressions: Back pain Qualified Codes: M54.50 - Low back pain, unspecified Elbow injury Qualified Codes: S59.901A - Unspecified injury of right elbow, initial encounter Disposition: HOME / SELF CARE / HOMELESS Condition: STABLE Referrals: ISADORA GRAHAM MD (PCP) Patient Instructions: Elbow Contusion, Low Back Strain with [facility]hab[facility] Additional Instructions: Follow-up with your primary care physician or an orthopedic doctor if needed. Use ice and ibuprofen to help with your pain. If you been having focal weakness or reddening and heat to the joint return to emergency room. Scripts Hydrocodone/Acetaminophen (Hydrocodone-Acetamin 5-325 mg) 1 Each Tablet 1 EACH PO Q6HRS, #10 TAB Prov: LOI FELIX APRN 07/13/21 LOI FELIX APRN July 13, 2021 12:15
[2021-07-13] MEDS ORDERED: HYDR-2759 PO (13:52)
--- NOTE | 2021-07-14 07:46 | RAD ---
Exam: XR ELBOW COMPLETE_RIGHT 3+ VIEWS, XR HUMERUS_RT 2 VIEWS, XR FOREARM_RIGHT 2 VIEWS History: Pain. Comparison: None. Findings: Osseous mineralization is normal. No acute fracture or dislocaton. No elbow effusion. No significant degenerative changes. Soft tissues are unremarkable. Impression: 1. No acute osseous abnormality in the right humerus, elbow and forearm. Electronically signed by: Randell Bae MD (07/13/2021 12:02 PM) [id number]
--- NOTE | 2021-07-14 07:47 | RAD ---
CT LUMBAR SPINE WO History: Fall, bone pain. Technique: Noncontrast CT was performed of the lumbar spine. Multiplanar reconstructions were perform ed. Comparison: CT abdomen and pelvis 02/20/2020. Findings: Normal vertebral body height and alignment. No fracture. Mild height loss and disc bulge at L4-L5 combined with facet and ligamentum flavum hypertrophy narrow the spinal canal to approximately 7 mm AP and cause mild bilateral foraminal stenosis. There is disc space narrowing and bilateral facet hypertrophy at L5-S1. Paraspinal soft tissues demonstrate granulomatous calcifications in the spleen and atherosclerotic ca lcification of the aorta with infrarenal ectasia measuring 2.0 cm diameter. Well-formed stool in the colon. Left ovarian cyst measuring 3.4 cm, similar to comparison. Impression: 1. Degenerative changes of the lumbar spine without acute osseous abnormality. 2. Left ovarian cyst measuring approximately 3.4 cm. Recommend surveillance pelvic ultrasound in one year. Exposure: One or more of the following individualized dose reduction techniques were utilized for thi s examination: 1. Automated exposure control 2. Adjustment of the mA and/or kV according to patient size 3. Use of iterative reconstruction technique. Electronically signed by: Randell Bae MD (07/13/2021 12:10 PM) [id number]
== END 2021-07-13 14:00 | disposition home or self-care (01) ==
LOC: ER 09:12
DX: S59.901A Unspecified injury of right elbow, initial encounter (principal); S30.810A Abrasion of lower back and pelvis, initial encounter; M19.90 Unspecified osteoarthritis, unspecified site; W10.8XXA Fall (on) (from) other stairs and steps, initial encounter; Y93.89 Activity, other specified; Y92.89 Other specified places as the place of occurrence of the external cause; Y99.8 Other external cause status
CPT/HCPCS: 72131; 73060; 73080; 73090; 99284